=== PATIENT | female | born 1945 ===

== ENCOUNTER → 2019-06-05 | Outpatient (CLI) | payer OTHER ==
[~2019-06-05] VITALS: Ht 160 cm; Wt 67.1 kg
[2019-06-05 09:25] VITALS: BP 146/71
--- NOTE | 2019-06-05 09:53 | NUR ---
Pain Clinic Assessment: 1. History of Osteoarthritis: SPINE History of Rheumatoid Arthritis: THINKS SO 2. Height: 5 ft. 3 in. 160.0 cm. Weight: 148.0 lb. oz. 67.132 kg. Patient's BMI: 26.2 3. Vital Signs: BP: 146/71 Pulse: 75 Resp: 16 Temp: 02 Sat: 99 ECG Mon: 4. Pain Intensity: 10 5. Fall Risk: Dizziness: Y Needs help standing or walking: N Fallen in the last 3 months: N Fall risk comments: 6. Patient on Blood Thinner: None 7. History of Hypertension: Y 8. Opioid Therapy greater than 6 weeks: N Opiate Contract Signed: 9. Risk Assessment Tool Provided: 4-MODERATE RISK 10. Functional Assessment Tool: 53/ 11. Recreational Drug Use: Never Drug Type: Tobacco Use: Current Every Day Smoker Tobacco Type: Cigarettes Amount or Packs/day: 4/DAY How Many Years: Alcohol Use: Yes Frequency: Daily Quant: 2 GLASSES EACH EVENING
--- NOTE | 2019-06-06 11:55 | HPC ---
[facility] [place] [address] [address] PAIN MANAGEMENT CONSULTATION Name: DINH HART Room #: REG Candido Didier.#: [id number] Admission: 06/05/19 Attend Phys: Igor Gilmore DO Discharge: Date of : 47 Report #: [id number] THIS REPORT FOR: cc: FAM - No family physician/PCP FAM - No family physician/PCP Igor Gilmore DO ~ DATE OF SERVICE: 06/05/2019 CHIEF COMPLAINT: Neck pain, bilateral upper extremity pain, back pain and bilateral lower extremity pain. HISTORY OF PRESENT ILLNESS: As you know, the patient is a 74-year-old female who has had a longstanding history of chronic neck pain, bilateral upper extremity pain and chronic low back pain, bilateral lower extremity pain that presented in 1991. The patient denies any specific injury or trauma that may have led to symptom development. She reports that she has been on chronic opioid medications being provided by a pain management clinic in [facility], for which she was receiving fentanyl patches up to 75 mcg q. 72 hours along with use of oxycodone. She states she underwent interventional treatments that based on her description appear to be facet injections in the cervical spine. She was released from her pain management clinic per the patient due to a disagreement with medications. She was referred then to see Dr. Jony Boyd at [facility] to discuss surgical options. The patient was seen at that visit and advised that no surgical options necessary. She was then referred to our clinic to discuss appropriateness of medication management as there was question whether or not the patient should remain on medications or if interventional treatments might be beneficial. The patient indicates pain is continuous and constant, describes the pain as sharp, places current pain score 10+/10 daily, average at 10+/10, worst pain has been as 10+/10. The patient states that "everything" makes her pain worse. Pain medications are the only things that make pain better. She has been referred to our service to discuss options for treatment for chronic cervical pain and chronic low back pain. PAST MEDICAL HISTORY: 1. Fibromyalgia. 2. Peptic ulcer disease. 3. GERD. 4. Depression. 5. Anxiety. 6. Chronic pain. 7. Hypertension. 8. Seasonal allergies. 9. History of alcohol intoxication, requiring hospitalization. [facility] [address] [place] [address] PAIN MANAGEMENT CONSULTATION Name: DINH HART Room #: REG [facility]..#: [id number] Admission: 06/05/19 Attend Phys: Igor Gilmore DO Discharge: Date of : 47 Report #: [id number] PAST SURGICAL HISTORY: 1. Multiple back surgeries. 2. Partial hysterectomy. 3. Rotator cuff repair. 4. Cholecystectomy. 5. Right ankle surgery. 6. Tonsillectomy. 7. Dilation and curettage. 8. Hysterectomy. SOCIAL HISTORY: The patient denies tobacco use. Denies IV or illicit drug use. Admits to 2 alcoholic beverages per day. She is retired. She is not working, not receiving workmen's compensation or is she trying to obtain disability benefits. She is unaccompanied at today's visit. She is not in litigation in regards to pain. REVIEW OF SYSTEMS: Positive for weight change, decrease in appetite, fatigue and weakness, frequent and recurrent headaches, wearing corrective eyewear, hearing loss with tinnitus, chronic sinus problems with rhinitis, shortness of breath with walking or lying flat, frequent and recurrent coughs, loss of appetite, frequent diarrhea interspersed with constipation, peptic ulcer disease, frequent urination, nocturia, incontinence and dribbling to urine, breast discharge, frequent and recurrent headaches, dizziness, numbness and tingling, tremors, memory loss with confusion, nervousness, depression, insomnia, heat and cold intolerance. All other review of systems negative per 12-point review of systems other than those listed in history of present illness. Pain impact score 53 of 70 indicating severe near complete interference of daily activities secondary to pain. ALLERGIES: CEPHALEXIN. CURRENT MEDICATIONS: None. IMAGING: MRI cervical spine obtained on 06/15/2019 shows reversal of normal lordotic curvature at C4, C5 and C6. Redemonstration of multilevel degenerative changes at C3-C4, C4-C5, C5-C6 and neural foraminal encroachment noted at C5-C6. Large circumferential bulging annulus at C4-C5 with effacement of the ventral thecal sac measuring 8 mm. Similar findings at C5-C6 with 9 mm central cord. PQRS: The patient reports osteoarthritic changes of the cervical spine and lumbar spine. She does not have a diagnosis of rheumatoid arthritis, nor is she being actively treated for the disease process. She is placing pain intensity today at 8/10. She is not at a fall risk, has not had a fall in last [address] [address] PAIN MANAGEMENT CONSULTATION Name: SHANNONMELANIEDINH Room #: REG CLCandido Torres.Rimma.#: [id number] Admission: 06/05/19 Attend Phys: Igor CariasPriscilla MandoDO Discharge: Date of : 47 Report #: [id number] She is not on blood thinners, but is treated for hypertension, though she takes no medication for this disease process. She is not on current opioids and has a moderate to high risk for opioid addiction. Pain impact score again indicated at 53/70, severe interference of daily activities secondary to pain. The patient does admit in this section of the questioning that she smokes 4 cigarettes per day, though in her social history, she indicated she is a nonsmoker. PHYSICAL EXAMINATION: VITAL SIGNS: Blood pressure 146/71, pulse 75, respiratory rate 16 and unlabored, the patient is 99% on room air. Height 5 feet 3 inches tall, weight 148 pounds, BMI calculated 26.2. GENERAL: Well-developed, well-nourished, well-hydrated 74-year-old female appearing stated age. She is in no acute distress, awake, alert and oriented x 3. Current pain is rated at 10/10. HEENT: Normocephalic, atraumatic. Pupils equal, round, reactive to light. Extraocular muscles are intact. Sclerae nonicteric without injection. NEUROLOGIC: Cranial nerves 2-12 grossly intact. Speech fluent. The patient deemed a poor historian. LUNGS: Clear. No wheezes, rhonchi or rales. CARDIOVASCULAR: Regular. No appreciable gallop, no rub. ABDOMEN: Soft, nontender, nondistended, normoactive bowel sounds. EXTREMITIES: Show no clubbing, no cyanosis, no edema. MUSCULOSKELETAL: Upper extremity strength is equal and symmetrical 5/5, though she presents with giveaway strength due to pain with biceps flexion and extension bilaterally. There is mild limitation of cervical functional rotation and lateral flexion. She has normal tactile sensation in the upper extremities bilaterally. Spurling's test is negative. Cervical provocation testing is met with increased pain. She has palpatory tenderness over the paraspinal musculature of lower lumbar spine. No spinous process tenderness. Gait is mildly antalgic, but stable. Lower extremity strength appears equal and symmetrical 5/5. No dermatomal distribution loss and intact to light touch from L1 through S2 dermatomes. Seated straight leg raising negative. Supine straight leg raising negative. Jaylen's test is negative. Modified Gaenslen's positive for some axial low back pain. ASSESSMENT: 1. Chronic neck pain. 2. Chronic low back pain. 3. Myofascial pain secondary to fibromyalgia. 4. Chronic intractable pain. PLAN: 1. Based on today's physical exam and history the patient has provided, the description the patient uses in regards to pain as well as the location of symptoms, likely source of the patient's pain is a combination of mild arthritic [address] [address] PAIN MANAGEMENT CONSULTATION Name: DINH HART Room #: REG Candido Mckenzie#: [id number] Admission: 06/05/19 Attend Phys: Igor Gilmore DO Discharge: Date of : 47 Report #: [id number] changes in the cervical and lumbar spine along with myofascial symptoms consistent with fibromyalgia. The patient reports that she has been treated with pain management at a clinic in the [facility] with opioid medications as high as 75 mcg fentanyl patch and oxycodone 4 times a day for breakthrough pain. Interestingly, the patient was discontinued completely in 02/2019 after a consultation that led to a verbal disagreement. I do not have any paperwork to confirm or deny that this occurred, though the patient is currently not taking any opioids based on her reports. She has been off opioids according to the patient since February. I have advised the patient that given the findings and physical exam and the history she has provided along with some of the inconsistency in her social history that she is not a good candidate for opioid medication management and that long-term opioid therapy for chronic pain secondary to myofascial symptoms is not recommended. We did discuss with the patient options for treatment today that will be made suggestion form to her primary care physician and the referring physician. 2. We have discussed today that treatment for myofascial symptoms is typically done with physical therapy, stretching exercise, core strengthening and aqua therapy, those individuals that do not respond well to this type of activity typically do fairly well with initiation of neuropathic medication such as nortriptyline, amitriptyline, Cymbalta, Lyrica or gabapentin. Opioid medications as indicated above are a relative contraindication in myofascial pain syndromes and it is not recommended nor have they been shown to provide any long-term benefit. We would recommend a slow titration of any of the neuropathic medications listed in this plan such as starting an amitriptyline or nortriptyline at 25 mg dose, escalating to up to 75-150 mg, increasing by 25 mg every 7 days with monitoring of efficacy. If one wanted to start Cymbalta, they start at 30 mg dose p.o. at bedtime and titrate 30 mg every 7 days to reach a total of 120 mg per day whether this be between a 60 mg dose in the morning and 60 mg dose at night versus 120 mg at a single dose would depend on efficacy. One could also start Lyrica or gabapentin with escalating doses of medication to reach efficacy without potential side effects of sleepiness, disorientation and confusion. 3. The patient does not appear to be a candidate for interventional treatments given her wide distribution of symptoms. It does appear that she was receiving some injections in the cervical spine, but this was also in conjunction with extremely high dose opioid medication management. When questioned about the injections, the patient states she received only transient improvement. We would not recommend further injections in this patient's case at this juncture, especially given the lack of any true radicular component. 4. She does not appear to be a spinal cord stimulator candidate given again the wide distribution of symptoms, we would be unable to capture any of the specific areas of pain as they are not generated by the neuropathic component and this is not recommended in this patient's case. We did discuss with the patient the device itself, but had indicated at this point that she is not a candidate. 5. The patient did questions in regards to the use of a possible intrathecal pump. I advised the patient that we do not offer intrathecal pump therapy. She [address] [address] PAIN MANAGEMENT CONSULTATION Name: DINH HART Room #: REG ARGENIS Velásquez.#: [id number] Admission: 06/05/19 Attend Phys: Igor Gilmore DO Discharge: Date of : 47 Report #: [id number] would have to seek treatment either with [facility] or [facility] in [place]. They would determine whether or not she is a candidate for intrathecal pump therapy, though again chronic opioid medication for myofascial symptoms is not indicated. We have advised the patient of such today, though she could certainly look into this option if she wishes to discuss further with or systems. 6. At this juncture, we believe that the patient would do best with utilizing neuropathic medications and consistent nonsteroidal anti-inflammatories. We will defer to the primary team in this patient's case to initiate that therapy if they feel necessary or the referring physician. We would certainly be available to help direct your care if requested, though at this point, we would not be taking this patient on as a medication management treatment patient. 7. We will see this patient back in followup visit on an as needed basis if further directions and treatment are requested. We would certainly be available to discuss her case further via telephone conversation if this would be more convenient. We wish to thank Dr. Boyd for the referral of the patient to our clinic. We are hopeful the information provided in this consultation will be helpful in directing her care. We will be available to discuss her case further if necessary. Again, we wish to thank you for the opportunity to see her in consultation. <ELECTRONICALLY SIGNED> By: Igor Gilmore DO 06/06/19 1155 [id number] Igor Gilmore DO /nt
== END ==
LOC: PAIN 08:15
DX: M54.2 Cervicalgia (principal); M54.5 Low back pain; M79.604 Pain in right leg; M79.605 Pain in left leg; M79.642 Pain in left hand; M79.641 Pain in right hand; M79.7 Fibromyalgia; K21.9 Gastro-esophageal reflux disease without esophagitis; F32.9 Major depressive disorder, single episode, unspecified; F41.9 Anxiety disorder, unspecified; K27.9 Peptic ulcer, site unspecified, unspecified as acute or chronic, without hemorrhage or perforation; I10 Essential (primary) hypertension; Z79.899 Other long term (current) drug therapy